=== PATIENT | female | born 2000 | race Caucasian/White ===

== ENCOUNTER 2020-01-30 23:33 | Emergency (ER) | payer BC ==
[~2020-01-30] VITALS: Ht 162.6 cm; Wt 83.0 kg
[2020-01-30 23:58] LABS: URINE BILIRUBIN NEGATIVE (Negative); URINE BLOOD TRACE (Negative); URINE CLARITY CLEAR; URINE COLOR YELLOW; URINE GLUCOSE-RANDOM* NEGATIVE (Negative); URINE KETONES NEGATIVE (Negative); URINE NITRITE-REFLEX NEGATIVE (Negative); URINE PROTEIN (DIPSTICK) NEGATIVE (Negative); URINE SPECIFIC GRAVITY >= 1.030 (1.005-1.035)
[2020-01-31 00:11] LABS: URINE LEUKOCYTES-REFLEX 2+ (Negative)
[2020-01-31 00:11] LABS: ABSOLUTE NEUTROPHILS 7.1 thou/uL (1.4-8.2); BASOPHILS 0.9 % (0.0-2.0); EOSINOPHILS 1.1 % (0.0-3.0); HEMATOCRIT 38.4 % (37.0-47.0); HEMOGLOBIN 13.4 gm/dL (12.0-15.0); LYMPHOCYTES 27.6 % (24.0-44.0); MCH 29.1 pg (26.0-34.0); MCHC 34.9 g/dL (28.0-37.0); MCV 83.5 fL (80.0-100.0); MONOCYTES 7.2 % (1.0-8.0); PLATELET COUNT 317 thou/uL (150-400); POLYS 63.2 % (36.0-66.0); RDW 12.9 % (10.5-14.5); WBC 11.2 thou/uL (4.0-11.0)
[2020-01-31] MEDS ORDERED: METFORMIN HCL500 M3 PO (00:11)
[2020-01-31 00:20] LABS: CASTS None Seen /LPF (None Seen); MUCUS 4-6 Moderate strn/LPF (None Seen); SQUAMOUS 4-10 Moderate /LPF (0-3); URINE RBC 0-2 Rare /HPF (0-2)
[2020-01-31 00:21] LABS: CALCIUM 9.1 mg/dL (8.5-10.1); CREATININE 0.9 mg/dL (0.6-1.0); POTASSIUM 3.5 mmol/L (3.5-5.1)
[2020-01-31 00:21] LABS: CRYSTALS None Seen /LPF (None Seen)
[2020-01-31 00:27] LABS: ALBUMIN 3.7 g/dL (3.4-5.0); TOTAL BILIRUBIN 0.3 mg/dL (<0.1-1.0); TOTAL PROTEIN 7.3 g/dL (6.4-8.2)
[2020-01-31] MEDS ORDERED: D3-501250 MCG PO (03:03)
[2020-01-31] MEDS ORDERED: SERTRALINE HCL50 MG PO (03:03)
[2020-01-31] MEDS ORDERED: PHENTERMINE H37.5 M1 PO (03:03)
[2020-01-31] MEDS ORDERED: DROSPIRENONE-E1 EACH PO (03:03)
[2020-01-31] MEDS ORDERED: NORCO 5-325 TA1 EAC1 PO (03:36)
[2020-01-31 03:51] VITALS: BP 109/54
== END 2020-01-31 04:00 | disposition home or self-care (01) ==
LOC: ER 23:33
PROVIDERS: Emergency Medicine
DX: N20.0 Calculus of kidney (principal); Z79.899 Other long term (current) drug therapy